=== PATIENT | female | born 1940 | race Caucasian/White ===

== ENCOUNTER → 2016-10-09 | Outpatient (RCR) ==
--- NOTE | 2016-09-20 12:04 | RS.OPPTEV2 ---
Date of Note: 09/20/16 Visit #: 1 Date of Evaluation: 09/20/16 Payer Source: MEDICARE Surgery Performed?: Yes Date of Procedure: 06/26/16 Treatment Diagnosis: Reverse shoulder replacement History of Condition/Mechanism of Injury:: Ms. Cox had left reversed TSR. She was doing pretty well until she lifted something on 09/12/2016. She states she had no immediate pain but then woke up the next morning and was in significant pain. She had a follow-up appt with the orthopedic surgeon and an X -ray showed the prosthesis was intact at that time and she was referred to PT. Prior Level of Function.....Patient was independent with: ADL's, Self Care, Caregiving, Ambulation/Mobility, Community Integration/Access Level of Function: Independent with ADL's. Functional Limitations: Sleep, Self Care, ADL's, Reaching, Pushing, Pulling, Lifting, Carrying Current Subjective/complaints:: I am afraid I really messed up my shoulder. Treatment Side (optional): Left Medical History Medical History: Hypertension, Arthritis, Cancer Surgical History: Knee Replacement, CABG Surgical History Comments:: CABG 2001 Smoking Status: Former smoker Hx Home Medications: Toprol, Aspirin, Losartan, Simvastin & Alieve Pain Assessment - Pain Description Pain Location: left shoulder Pain Description: Burning, Sharp Pain Description: With any active movement Current Pain Intensity: 0 at rest Worst Pain Intensity: 10/10 Functional Outcome Measure UE Functional Index: 34 (43% Disability) - G Codes & Severity Modifier G Codes & Modifier: Current: Carrying, Moving & Handling Objects - CK. Goal: CJ Source of G Code score: Upper Extremity Functional Index General Range of Motion: Left shoulder ROM is WFLs in all planes with min tightness noted on external rotation. Pain is also a limiting factor in assessment. Muscle Strength: Unable to test due to pain with AROM. Palpation Palpation Findings: Tenderness, Trigger Point, Muscle Guarding (Left shoulder muscles with varying degrees of discomfort to palpation.) Sensation - Sensation Left Upper Extremity: Intact/Normal Interventions - Exercise/Activities/Manual Therapy Exercises/Activities: Ther ex: AAROM of the left shoulder in all planes of motion within pain free range, shoulder shrugs, shoulder circles CW/CCW. Manual Therapy: Tender point releases performed to multiple areas of the left shoulder anterior, posterior and superiorly; left scapular mobility to improve thoracoscapular mobility, oscilation and joint distraction of the glenohumeral joint as well HOME EXERCISE PROGRAM: Patient was instructed to use MH and to perform shoulder shrugs and circles as she can tolerate in pain free ROM. She was instructed to rest the joint and stop when movements cause increased sharp pain. - Charges Total Direct Minutes: 70 Total Treatment Time: 45 Procedures billed for this date of service:: PT Eval (Low), Manual Therapy X 2, Ther Ex Assessment Assessment: Left shoulder pain with active movement and left shoulder weakness. Patient Education: Education of diagnosis, Body/Joint mechanics, Home Exercise Program, Activity Modification, Education of Plan of Care Rehab Potential: Good Short Term Goals Goal #1: Left shoulder initiation of movement without increased pain Goal to be met by: 10/12/16 Goal #2: Worst pain 5/10 left shoulder Goal to be met by: 10/12/16 Goal #3: Patient is independent and compliant with basic HEP Goal to be met by: 10/12/16 Goal #4: Left shoulder strength 4/5. Goal to be met by: 10/12/16 Machine Specialist Goals Goal #1: Patient independent in HEP. Goal to be met by: 11/02/16 Goal #2: Left shoulder AROM WFL's to perform selfcare and ADL's. Goal to be met by: 11/02/16 Goal #3: Score on UE Functional Index improved to 60. Goal to be met by: 11/02/16 Goal #4: Uses LUE for ADLs with minimal pain. Goal to be met by: 11/02/16 Plan - Treatment to be Provided Procedures: Therapeutic Exercises, Therapeutic Activity, Neuromuscular Rehab, Manual Therapy, Massage, Splinting/Taping, Patient Education Modalities: Electrical Stimulation, Ultrasound/Phonophoresis, Class IV Laser, Cryotherapy, Hot Packs - Treatment Plan Frequency: 1 X week Duration: 6 weeks ORDER # VISITS AND/OR THROUGH DATE: 11/02/2016 - Treatment Code (1) Left shoulder pain Qualifiers: Chronicity: acute Qualified Description: Acute pain of left shoulder Qualifier Code(s): (M25.512) Pain in left shoulder (2) Bilateral arm weakness Comments: M62.81 left shoulder
--- NOTE | 2016-09-26 14:07 | RS.OPPTDN ---
Subjective Date of Note: 09/26/16 Visit #: 2 Date of Evaluation: 09/20/16 Payer Source: MEDICARE Treatment Diagnosis: Reverse shoulder replacement Current Subjective/complaints:: Patient says she had barely any pain right after surgery and could raise her arm quite well. But, she says she lifted something she wasn't supposed to and had pain ever since as well as very limited ROM. States she does not return to the MD until November 21. She says she would like to come to therapy BIW. Pain Assessment - Pain Description Pain Location: left shoulder Pain Description: Burning, Sharp Pain Description: With any active movement Current Pain Intensity: 0 at rest - Treatment Modality: Electrical Stim Unattended Parameters/Method Applied: Hivolt 4 small pads @ 130 pk volts x 20 mins to the L shoulder ant/post and to UT Patient Position: Sitting - Heat/Cryotherapy Treatment: Cryotherapy Interventions - Exercise/Activities/Manual Therapy Exercises/Activities: Ther ex: PROM all directions in shoulder and elbow in supine. Continued with oscillation and long axis joint distraction for mobility and pain relief. Patient performs shoulder shrugs and scap adduction, cervical SB and rotation in sitting x 10. Total minutes of Exercise: 22 Manual Therapy: na HOME EXERCISE PROGRAM: Patient was instructed to use MH and to perform shoulder shrugs and circles as she can tolerate in pain free ROM. She was instructed to rest the joint and stop when movements cause increased sharp pain. - Charges Total Direct Minutes: 22 Total Treatment Time: 42 Procedures billed for this date of service:: cp, ex, estim (un) Assessment: Patient with moderate pain level and limitation with mobility of the L shoulder. New symptoms occuring a few weeks post op as she recalls very little pain and no difficulty moving in any plane until she lifted something at home. She does not have a follow up until November 21 and recommended her to contact her MD about a sooner appointment. She demo guarding and tenses slightly at initial ROM, but loosens well after time progresses and with oscillations. Patient Education: Education of diagnosis, Body/Joint mechanics, Home Exercise Program, Home Safety, Activity Modification, Education of Plan of Care Short Term Goals Goal #1: Left shoulder initiation of movement without increased pain Goal to be met by: 10/12/16 Goal #2: Worst pain 5/10 left shoulder Goal to be met by: 10/12/16 Goal #3: Patient is independent and compliant with basic HEP Goal to be met by: 10/12/16 Goal #4: Left shoulder strength 4/5. Goal to be met by: 10/12/16 [facility] Living Goals Goal #1: Patient independent in HEP. Goal to be met by: 11/02/16 Progress towards goal: Progressing Goal #2: Left shoulder AROM WFL's to perform selfcare and ADL's. Goal to be met by: 11/02/16 Goal #3: Score on UE Functional Index improved to 60. Goal to be met by: 11/02/16 Goal #4: Uses LUE for ADLs with minimal pain. Goal to be met by: 11/02/16 Plan PLAN OF CARE EXPIRES ON:: 11/02/16 ORDER # VISITS AND/OR THROUGH DATE: 11/02/2016 PLAN: Progress Exercises
--- NOTE | 2016-10-04 14:29 | RS.OPPTDN ---
Subjective Date of Note: 10/04/16 Visit #: 4 Date of Evaluation: 09/20/16 Payer Source: MEDICARE Treatment Diagnosis: Reverse shoulder replacement Current Subjective/complaints:: Patient says she may be impatient with her progress. She feels she should be further along than what she is. She will be seeing her MD tomorrow. She adds, she will be flying to [place] the beginning of November and would like to come [facility] next week to improve quicker. Pain Assessment - Pain Description Pain Location: left shoulder Pain Description: Burning, Sharp Pain Description: With any active movement Current Pain Intensity: 0 at rest - Heat/Cryotherapy Treatment: Hot Pack (15 mins to the L shoulder in sitting) Interventions - Exercise/Activities/Manual Therapy Exercises/Activities: Ther ex: PROM all directions in shoulder and elbow in supine. Continued with oscillation and long axis joint distraction for mobility and pain relief. She allows for shoulder flexion to 130 degrees freely. ABD in scaption plane near WFL as well. AROM for elbow, 5# mechanic assistant digiflexor, AAROM for press ups and bilateral shoulder flexion 1# therapy stick x 5. Sitting AAROM for flexion and scaption, Patient performs shoulder shrugs and scap adduction, cervical SB and rotation in sitting x 10. Total minutes of Exercise: 35 Manual Therapy: na HOME EXERCISE PROGRAM: Patient was instructed to use MH and to perform shoulder shrugs and circles as she can tolerate in pain free ROM. She was instructed to rest the joint and stop when movements cause increased sharp pain. - Charges Total Direct Minutes: 35 Total Treatment Time: 50 Procedures billed for this date of service:: hp, ex2 Assessment: Patient demos improvement with PROM all planes. She has limited passive ER due to pain, but all else without muscle guarding. Active flexion remains difficult and painful. She uses ice/heat at home for pain control. She is not taking any pain meds prior to PT, only at bedtime. She appears to be progressing well according to protocol. Patient Education: Education of diagnosis, Body/Joint mechanics, Home Exercise Program, Home Safety, Activity Modification, Education of Plan of Care Patient demonstrates compliance with HEP?: Yes Short Term Goals Goal #1: Left shoulder initiation of movement without increased pain Goal to be met by: 10/12/16 Progress towards Goal:: Progressing Comments:: passively very little soreness Goal #2: Worst pain 5/10 left shoulder Goal to be met by: 10/12/16 Comments:: Actively causes pain Goal #3: Patient is independent and compliant with basic HEP Goal to be met by: 10/12/16 Progress towards Goal:: Progressing Goal #4: Left shoulder strength 4/5. Goal to be met by: 10/12/16 Patrol Captain Goals Goal #1: Patient independent in HEP. Goal to be met by: 11/02/16 Progress towards goal: Progressing Goal #2: Left shoulder AROM WFL's to perform selfcare and ADL's. Goal to be met by: 11/02/16 Goal #3: Score on UE Functional Index improved to 60. Goal to be met by: 11/02/16 Goal #4: Uses LUE for ADLs with minimal pain. Goal to be met by: 11/02/16 Plan PLAN OF CARE EXPIRES ON:: 11/02/16 ORDER # VISITS AND/OR THROUGH DATE: 11/02/2016 PLAN: Progress Exercises (Patient has follow up with Oct 05.)
--- NOTE | 2016-10-04 16:14 | RS.OPPTDN ---
Subjective Date of Note: 10/02/16 Visit #: 3 Date of Evaluation: 09/20/16 Payer Source: MEDICARE Treatment Diagnosis: Reverse shoulder replacement Current Subjective/complaints:: Patient says she is still having pain to the L shoulder, but has been using heat at home, which is helping. She says that she continues to perform HEP. States she is able to wear "regular clothes" and does not have to wear button down shirts. Reports she is able to see more mobility and does not have the "sting" she did last week into the L shoulder and upper arm. Pain Assessment - Pain Description Pain Location: left shoulder Pain Description: Burning, Sharp Pain Description: With any active movement Current Pain Intensity: 0 at rest - Heat/Cryotherapy Treatment: Hot Pack (15 mins to the L shoulder in sitting) Interventions - Exercise/Activities/Manual Therapy Exercises/Activities: Ther ex: PROM all directions in shoulder and elbow in supine. Continued with oscillation and long axis joint distraction for mobility and pain relief. AROM for elbow, 5# outdoor studies director digiflexor, AAROM for press ups and bilateral shoulder flexion 1# therapy stick x 5. Sitting AAROM for flexion and scaption, Patient performs shoulder shrugs and scap adduction, cervical SB and rotation in sitting x 10. Total minutes of Exercise: 30 Manual Therapy: na HOME EXERCISE PROGRAM: Patient was instructed to use MH and to perform shoulder shrugs and circles as she can tolerate in pain free ROM. She was instructed to rest the joint and stop when movements cause increased sharp pain. - Charges Total Direct Minutes: 30 Total Treatment Time: 45 Procedures billed for this date of service:: hp, ex2 Assessment: Patient with no pain except with active flexion. She demo's good motion passively with the exception of ER. She is hopeful that she will be able to lift her arm more by herself. Patient Education: Education of diagnosis, Body/Joint mechanics, Home Exercise Program, Home Safety, Activity Modification, Education of Plan of Care Patient demonstrates compliance with HEP?: Yes Short Term Goals Goal #1: Left shoulder initiation of movement without increased pain Goal to be met by: 10/12/16 Goal #2: Worst pain 5/10 left shoulder Goal to be met by: 10/12/16 Goal #3: Patient is independent and compliant with basic HEP Goal to be met by: 10/12/16 Goal #4: Left shoulder strength 4/5. Goal to be met by: 10/12/16 Intermediate Goals Goal #1: Patient independent in HEP. Goal to be met by: 11/02/16 Progress towards goal: Progressing Goal #2: Left shoulder AROM WFL's to perform selfcare and ADL's. Goal to be met by: 11/02/16 Goal #3: Score on UE Functional Index improved to 60. Goal to be met by: 11/02/16 Goal #4: Uses LUE for ADLs with minimal pain. Goal to be met by: 11/02/16 Plan PLAN OF CARE EXPIRES ON:: 11/02/16 ORDER # VISITS AND/OR THROUGH DATE: 11/02/2016 PLAN: Progress Exercises
--- NOTE | 2016-10-09 11:54 | RS.OPPTDN ---
Subjective Date of Note: 10/09/16 Visit #: 5 Date of Evaluation: 09/20/16 Payer Source: MEDICARE Treatment Diagnosis: Reverse shoulder replacement Current Subjective/complaints:: Patient says she had a good report with her MD. Says the xray shows healing well. Reports pain is only in certain movements, but says she is able to move the arm better. Pain Assessment - Pain Description Pain Location: left shoulder Pain Description: Burning, Sharp Pain Description: With any active movement Current Pain Intensity: 0 at rest - Heat/Cryotherapy Treatment: Hot Pack (15 mins to the L shoulder in sitting) Interventions - Exercise/Activities/Manual Therapy Exercises/Activities: Ther ex: PROM all directions in shoulder and elbow in supine. Continued with oscillation and long axis joint distraction for mobility and pain relief. Began gentle manual isometrics for the shoulder in supine x 5. AROM for elbow, 5# tractor driver digiflexor, AAROM for press ups and bilateral shoulder flexion 1# therapy stick 2 x 5. Sitting AAROM for flexion and scaption, Red tband with therapy stick for scap retraction. Patient performs shoulder shrugs and scap adduction, cervical SB and rotation in sitting x 10. Total minutes of Exercise: 35 Manual Therapy: na HOME EXERCISE PROGRAM: Patient was instructed to use MH and to perform shoulder shrugs and circles as she can tolerate in pain free ROM. She was instructed to rest the joint and stop when movements cause increased sharp pain. - Charges Total Direct Minutes: 35 Total Treatment Time: 50 Procedures billed for this date of service:: hp, ex2 Assessment: Patient had a good experience with her MD at follow up. Xray shows TSA healing well. She demos good PROM to near WNL for flexion, ABD WFL. Rotation even improving. Patient Education: Education of diagnosis, Body/Joint mechanics, Home Exercise Program, Home Safety, Activity Modification, Education of Plan of Care Patient demonstrates compliance with HEP?: Yes Short Term Goals Goal #1: Left shoulder initiation of movement without increased pain Goal to be met by: 10/12/16 Goal #2: Worst pain 5/10 left shoulder Goal to be met by: 10/12/16 Goal #3: Patient is independent and compliant with basic HEP Goal to be met by: 10/12/16 Goal #4: Left shoulder strength 4/5. Goal to be met by: 10/12/16 [facility] Goals Goal #1: Patient independent in HEP. Goal to be met by: 11/02/16 Progress towards goal: Progressing Goal #2: Left shoulder AROM WFL's to perform selfcare and ADL's. Goal to be met by: 11/02/16 Goal #3: Score on UE Functional Index improved to 60. Goal to be met by: 11/02/16 Goal #4: Uses LUE for ADLs with minimal pain. Goal to be met by: 11/02/16 Plan PLAN OF CARE EXPIRES ON:: 11/02/16 ORDER # VISITS AND/OR THROUGH DATE: 11/02/2016 PLAN: Progress Exercises
== END ==
PROVIDERS: ATTEND Orthopaedic Surgery
DX: Z96.612 Presence of left artificial shoulder joint (principal)

== ENCOUNTER 2016-11-01 11:00 | Outpatient (RCR) ==
--- NOTE | 2016-10-11 12:17 | RS.OPPTDN ---
Subjective Date of Note: 10/11/16 Visit #: 6 Date of Evaluation: 09/20/16 Payer Source: MEDICARE Treatment Diagnosis: Reverse shoulder replacement Current Subjective/complaints:: Patient says she is doing well and will have a follow up with MD in 1 1/2 weeks. She feels she has good motion and has been seeing less pain. She expects to only come 1-2 more weeks before leaving for [place]. Pain Assessment - Pain Description Pain Location: left shoulder Pain Description: With any active movement Current Pain Intensity: 0 at rest - Heat/Cryotherapy Treatment: Hot Pack (to the L shoulder and neck in sitting x 15 mins) Interventions - Exercise/Activities/Manual Therapy Exercises/Activities: Ther ex: PROM all directions in shoulder and elbow in supine. Continued with oscillation and long axis joint distraction for mobility and pain relief. Began gentle manual isometrics for the shoulder in supine x 5. AROM for elbow, 5# online marketing director digiflexor, AAROM for press ups and bilateral shoulder flexion 1# therapy stick 2 x 5. Sitting AAROM for flexion and scaption, Red tband with therapy stick for scap retraction. Patient performs shoulder shrugs and scap adduction, cervical SB and rotation in sitting x 10. Active shoulder flexion in sitting. Total minutes of Exercise: 33 Manual Therapy: na HOME EXERCISE PROGRAM: Patient was instructed to use MH and to perform shoulder shrugs and circles as she can tolerate in pain free ROM. She was instructed to rest the joint and stop when movements cause increased sharp pain. - Objective Findings Observations,measurements,etc.: AAROM: Flexion 145 degrees (supine), Active is actually more at 150 degrees due to no hinderance from the R UE. AAROM: ABD to 110 degrees (supine) - Charges Total Direct Minutes: 33 Total Treatment Time: 48 Procedures billed for this date of service:: hp, ex2 Assessment: Patient demonstrates increased passive and active ranges today. Less pain noted with all therex and patient expressess she does not feel she needs much more PT after next week. Patient Education: Education of diagnosis, Body/Joint mechanics, Home Exercise Program, Home Safety, Activity Modification, Education of Plan of Care Patient demonstrates compliance with HEP?: Yes Short Term Goals Goal #1: Left shoulder initiation of movement without increased pain Goal to be met by: 10/12/16 Progress towards Goal:: Progressing Goal #2: Worst pain 5/10 left shoulder Goal to be met by: 10/12/16 Progress towards Goal:: Progressing Goal #3: Patient is independent and compliant with basic HEP Goal to be met by: 10/12/16 Progress towards Goal:: Progressing Goal #4: Left shoulder strength 4/5. Goal to be met by: 10/12/16 [facility] Goals Goal #1: Patient independent in HEP. Goal to be met by: 11/02/16 Progress towards goal: Progressing Goal #2: Left shoulder AROM WFL's to perform selfcare and ADL's. Goal to be met by: 11/02/16 Goal #3: Score on UE Functional Index improved to 60. Goal to be met by: 11/02/16 Goal #4: Uses LUE for ADLs with minimal pain. Goal to be met by: 11/02/16 Plan PLAN OF CARE EXPIRES ON:: 11/02/16 ORDER # VISITS AND/OR THROUGH DATE: 11/02/2016 PLAN: Progress Exercises
--- NOTE | 2016-10-16 13:15 | RS.OPPTDN ---
Subjective Date of Note: 10/16/16 Visit #: 7 Date of Evaluation: 09/20/16 Payer Source: MEDICARE Treatment Diagnosis: Reverse shoulder replacement Current Subjective/complaints:: Patient c/o stiffness over the weekend. Says she may have slept wrong. Pain Assessment - Pain Description Pain Location: left shoulder Pain Description: With any active movement Current Pain Intensity: 0 at rest, C/c stiffness today - Heat/Cryotherapy Treatment: Hot Pack (15 mins to the L shoulder and neck in sitting) Interventions - Exercise/Activities/Manual Therapy Exercises/Activities: Ther ex: PROM all directions in shoulder in supine. Continued with oscillation and long axis joint distraction for mobility and pain relief. Continued with manual isometrics for the shoulder in supine x 5. Active shoulder reaching 2/5. Elbow and wrist 1# dumbell, 5# service delivery analyst digiflexor, AAROM for press ups and bilateral shoulder flexion 1# therapy stick 2 x 5. Sitting Active shoulder flexion 2x5. Red tband with therapy stick for scap retraction. Patient performs shoulder shrugs, cervical SB and rotation in sitting x 10. Total minutes of Exercise: 34 Manual Therapy: na HOME EXERCISE PROGRAM: Patient was instructed to use MH and to perform shoulder shrugs and circles as she can tolerate in pain free ROM. She was instructed to rest the joint and stop when movements cause increased sharp pain. - Charges Total Direct Minutes: 34 Total Treatment Time: 49 Procedures billed for this date of service:: hp, ex2 Assessment: Patient performs all therex now WFL actively for abd and flexion. Rotation still limited by about 40%, but improving. Movements are more controlled with eccentric contractions. Limited resistance, however, with isometrics regarding IR/ER. Patient Education: Education of diagnosis, Body/Joint mechanics, Home Exercise Program, Home Safety, Activity Modification, Education of Plan of Care Patient demonstrates compliance with HEP?: Yes Short Term Goals Goal #1: Left shoulder initiation of movement without increased pain Goal to be met by: 10/12/16 Progress towards Goal:: Progressing Goal #2: Worst pain 5/10 left shoulder Goal to be met by: 10/12/16 Progress towards Goal:: Progressing Goal #3: Patient is independent and compliant with basic HEP Goal to be met by: 10/12/16 Progress towards Goal:: Progressing Goal #4: Left shoulder strength 4/5. Goal to be met by: 10/12/16 [facility] Goals Goal #1: Patient independent in HEP. Goal to be met by: 11/02/16 Progress towards goal: Progressing Goal #2: Left shoulder AROM WFL's to perform selfcare and ADL's. Goal to be met by: 11/02/16 Goal #3: Score on UE Functional Index improved to 60. Goal to be met by: 11/02/16 Goal #4: Uses LUE for ADLs with minimal pain. Goal to be met by: 11/02/16 Plan PLAN OF CARE EXPIRES ON:: 11/02/16 ORDER # VISITS AND/OR THROUGH DATE: 11/02/2016 PLAN: Progress Exercises
--- NOTE | 2016-10-30 16:32 | RS.OPPTDN ---
Subjective Date of Note: 10/30/16 Visit #: 9 Date of Evaluation: 09/20/16 Payer Source: MEDICARE Treatment Diagnosis: Reverse shoulder replacement Current Subjective/complaints:: Patient says she is doing very well. She says that her pain is very minimal and intermittent. She will be leaving to [place] next week and says she feels she is doing well enough in PT to go and do nearly anything. Pain Assessment - Pain Description Pain Location: left shoulder Pain Description: With any active movement Current Pain Intensity: 0 at rest, C/c stiffness today - Heat/Cryotherapy Treatment: Hot Pack (20 mins to the L shoulder sitting) Interventions - Exercise/Activities/Manual Therapy Exercises/Activities: Ther ex: PROM all directions in shoulder in supine. Continued with oscillation and long axis joint distraction for mobility and pain relief. Continued with manual isometrics for the shoulder in supine x 5. Active shoulder reaching 2/5. Elbow and wrist 1# dumbell, 5# exchange architect digiflexor, AAROM for press ups and bilateral shoulder flexion 1 1/2# therapy stick 2 x 5. Sitting Active shoulder flexion 2x5. Red tband with therapy stick for scap retraction. Patient performs shoulder shrugs, cervical SB and rotation in sitting x 10. Finished with Active shoulder flexion and abd 2/5 reps. Total minutes of Exercise: 30 Manual Therapy: na HOME EXERCISE PROGRAM: Patient was instructed to use MH and to perform shoulder shrugs and circles as she can tolerate in pain free ROM. She was instructed to rest the joint and stop when movements cause increased sharp pain. - Charges Total Direct Minutes: 30 Total Treatment Time: 45 Procedures billed for this date of service:: hp, ex2 Assessment: Patient demonstrates near full passive flexion and abd in scaption. Patient actively able to perform flex/abd in WFL and within RSR expectations. Patient shows good resistance with all isometrics and remains pleased with low pain level. Patient Education: Education of diagnosis, Body/Joint mechanics, Home Exercise Program, Home Safety, Activity Modification, Education of Plan of Care Patient demonstrates compliance with HEP?: Yes Short Term Goals Goal #1: Left shoulder initiation of movement without increased pain Goal to be met by: 10/12/16 Progress towards Goal:: Met Goal #2: Worst pain 5/10 left shoulder Goal to be met by: 10/12/16 Progress towards Goal:: Met Goal #3: Patient is independent and compliant with basic HEP Goal to be met by: 10/12/16 Progress towards Goal:: Met Goal #4: Left shoulder strength 4/5. Goal to be met by: 10/12/16 Progress towards Goal:: Met Longterm Goals Goal #1: Patient independent in HEP. Goal to be met by: 11/02/16 Progress towards goal: Progressing Goal #2: Left shoulder AROM WFL's to perform selfcare and ADL's. Goal to be met by: 11/02/16 Progress towards goal: Partially Met Goal #3: Score on UE Functional Index improved to 60. Goal to be met by: 11/02/16 Comments: Assess Goal #4: Uses LUE for ADLs with minimal pain. Goal to be met by: 11/02/16 Progress towards goal: Progressing Plan PLAN OF CARE EXPIRES ON:: 11/02/16 ORDER # VISITS AND/OR THROUGH DATE: 11/02/2016 PLAN: Plan for Discharge
--- NOTE | 2016-11-01 13:32 | RS.OPPTDN ---
Subjective Date of Note: 11/01/16 Visit #: 10 Date of Evaluation: 09/20/16 Payer Source: MEDICARE Treatment Diagnosis: Reverse shoulder replacement Current Subjective/complaints:: Patient states the weather is helping her pain. She says she is very happy how well her shoulder is doing. She says she is able to do most everything at home now and preparing to fly to [place] next week. Pain Assessment - Pain Description Pain Location: left shoulder Pain Description: With any active movement Current Pain Intensity: 0 at rest - Heat/Cryotherapy Treatment: Hot Pack (15 mins to the L shoulder in sitting) Interventions - Exercise/Activities/Manual Therapy Exercises/Activities: Ther ex: PROM all directions in shoulder in supine. Continued with oscillation and long axis joint distraction for mobility and pain relief. Continued with manual isometrics for the shoulder in supine x 5. Active shoulder reaching 2/5. Progressed Elbow and wrist 2# dumbell, 7 and 9# ordnance engineer digiflexor, AAROM for press ups and bilateral shoulder flexion 1 1/2# therapy stick 2 x 5. Sitting Active shoulder flexion 2x5. Red tband with therapy stick for scap retraction. Patient performs shoulder shrugs, cervical SB and rotation in sitting x 10. Reassessment completed. Total minutes of Exercise: 30 Manual Therapy: na HOME EXERCISE PROGRAM: Patient was instructed to use MH and to perform shoulder shrugs and circles as she can tolerate in pain free ROM. She was instructed to rest the joint and stop when movements cause increased sharp pain. - Objective Findings Observations,measurements,etc.: UE Functional Index: 69/80 or 14% impairment ( eval: 34/80 or 43% impairment) - Charges Total Direct Minutes: 30 Total Treatment Time: 45 Procedures billed for this date of service:: hp, ex2 Assessment: Patient has advanced well with mobility and strength, demo improved UE Index. Passive flexion/abd 165 degrees, Actively WFL. Patient Education: Education of diagnosis, Body/Joint mechanics, Home Exercise Program, Home Safety, Activity Modification, Education of Plan of Care Patient demonstrates compliance with HEP?: Yes Short Term Goals Goal #1: Left shoulder initiation of movement without increased pain Goal to be met by: 10/12/16 Progress towards Goal:: Met Goal #2: Worst pain 5/10 left shoulder Goal to be met by: 10/12/16 Progress towards Goal:: Met Goal #3: Patient is independent and compliant with basic HEP Goal to be met by: 10/12/16 Progress towards Goal:: Met Goal #4: Left shoulder strength 4/5. Goal to be met by: 10/12/16 Progress towards Goal:: Met Residential Goals Goal #1: Patient independent in HEP. Goal to be met by: 11/02/16 Progress towards goal: Met Goal #2: Left shoulder AROM WFL's to perform selfcare and ADL's. Goal to be met by: 11/02/16 Progress towards goal: Met Goal #3: Score on UE Functional Index improved to 60. Goal to be met by: 11/02/16 Progress towards goal: Met Goal #4: Uses LUE for ADLs with minimal pain. Goal to be met by: 11/02/16 Progress towards goal: Met Plan PLAN OF CARE EXPIRES ON:: 11/02/16 ORDER # VISITS AND/OR THROUGH DATE: 11/02/2016 PLAN: Plan for Discharge
--- NOTE | 2016-11-08 16:17 | RS.OPPTDC ---
Date of Discharge: 11/29/16 Date of Evaluation: 09/20/16 Number of Visits: 10 Treatment Diagnosis: Reverse shoulder replacement Current Complaints/Gains: Patient is pleased with her progress,is tolerating ADL 's better.She is also compliant to HEP. Pain Assessment - Pain Description Pain Location: left shoulder Pain Description: With any active movement Current Pain Intensity: 0 at rest Functional Outcome Measure Neck Disability Index: 69 (14%) - G Codes & Severity Modifier G Codes & Modifier: Carrying Moving & Handling Objects. DC - CI. Goal - CJ Source of G Code score: UE Functional Scale Interventions - Exercise/Activities/Manual Therapy Exercises/Activities: NA Manual Therapy: na HOME EXERCISE PROGRAM: NA - Charges Total Direct Minutes: NA Total Treatment Time: NA Procedures billed for this date of service:: NA Assessment Assessment: Excellent progress with PT intervention. All STGs and LTGs were met. She is independent with HEP at DC to continue with her DC status. Short Term Goals Goal #1: Left shoulder initiation of movement without increased pain Goal to be met by: 10/12/16 Progress towards Goal:: Met Goal #2: Worst pain 5/10 left shoulder Goal to be met by: 10/12/16 Progress towards Goal:: Met Goal #3: Patient is independent and compliant with basic HEP Goal to be met by: 10/12/16 Progress towards Goal:: Met Goal #4: Left shoulder strength 4/5. Goal to be met by: 10/12/16 Progress towards Goal:: Met Shelter Goals Goal #1: Patient independent in HEP. Goal to be met by: 11/02/16 Progress towards goal: Met Goal #2: Left shoulder AROM WFL's to perform selfcare and ADL's. Goal to be met by: 11/02/16 Progress towards goal: Met Goal #3: Score on UE Functional Index improved to 60. Goal to be met by: 11/02/16 Progress towards goal: Met Goal #4: Uses LUE for ADLs with minimal pain. Goal to be met by: 11/02/16 Progress towards goal: Met Plan Reason for Discharge:: All Goals Met
== END 2016-11-06 ==
PROVIDERS: ATTEND Orthopaedic Surgery
DX: Z96.612 Presence of left artificial shoulder joint (principal)

== ENCOUNTER 2017-01-11 09:54 | Outpatient (CLI) ==
--- NOTE | 2017-01-11 10:57 | CT ---
EXAM: CT of the lumbar spine without contrast History: Bilateral sciatica and leg pain. Comparison: None available. Technique: Multiplanar CT images through the lumbar spine were obtained without the administration of IV contrast Findings: Atherosclerotic vascular calcifications. Osteopenia. No acute fracture. Grade 1 anteroli sthesis of L4 on L5. Severe disc space narrowing at L2-L3 with endplate sclerosis, osteophyte forma tion and cystic endplate changes. Moderate to severe degenerative disc disease at L4-L5 and L3-L4 a s well as L1-L2. T12-L1: No significant bony central canal stenosis or bony neural foraminal narrowing. L1-L2: Modest disc protrusion with moderate central canal stenosis. Moderate to severe left and mi ld to moderate right bony neural foraminal narrowing secondary to ligamentous and facet hypertrophy. L2-L3: Posterior disc osteophyte complex with moderate to severe bony central canal stenosis. Mode rate to severe right and moderate left bony neural foraminal narrowing secondary to ligamentous and facet hypertrophy. L3-L4: Moderate to severe central canal stenosis. Severe right and moderate to severe left bony ne ural foraminal narrowing secondary to ligamentous and facet hypertrophy. L4-L5: Severe central canal stenosis. Severe bilateral bony neural foraminal narrowing secondary t o ligamentous and facet hypertrophy. L5-S1: Small disc protrusion with mild to moderate central canal stenosis. Mild to moderate bilate ral bony neural foraminal narrowing secondary to ligamentous and facet hypertrophy. Impression: 1. No acute fracture of the lumbar spine. 2. Severe degenerative disc disease at L2-3. Moderate to severe degenerative disc disease seen els ewhere. 3. Level by level analysis as detailed above with multilevel central canal stenosis and neural fora jorge luis narrowing, most significant at L4-L5.
== END 2017-01-11 09:55 | disposition home or self-care (01) ==
LOC: RAD 09:54
PROVIDERS: ATTEND Internal Medicine
DX: M54.42 Lumbago with sciatica, left side (principal); M54.41 Lumbago with sciatica, right side

== ENCOUNTER 2017-02-13 09:03 | Outpatient (CLI) | payer OTHER ==
--- NOTE | 2017-02-13 10:25 | MAMMO ---
EXAM: Bilateral digital diagnostic mammogram. History: Follow-up right breast calcifications. Comparison: Right diagnostic mammogram 08/20/2016, bilateral mammogram 01/27/2016 Findings: MLO and CC views of bilateral breasts demonstrate predominately fatty replaced breast par enchyma. Biopsy clip again seen within the right breast. Stable benign right breast calcifications . Stable benign bilateral vascular calcifications. There are no developing masses and no suspiciou s microcalcifications. Impression: Benign mammogram. Return to routine screening mammography schedule. BIRADS 2
== END 2017-02-13 09:04 | disposition home or self-care (01) ==
LOC: RAD 09:03
PROVIDERS: ATTEND Specialist
DX: R92.0 Mammographic microcalcification found on diagnostic imaging of breast (principal)

== ENCOUNTER 2017-04-05 10:27 | Outpatient (CLI) ==
[2017-04-05 10:54] LABS: BASOPHILS # (AUTO) 0.1 K/uL (0-0.2); BASOPHILS % (AUTO) 0.9 % (0.0-3.0); EOSINOPHILS # (AUTO) 0.1 K/ul (0.0-0.7); EOSINOPHILS % (AUTO) 0.8 % (0.0-7.0); HEMATOCRIT 37.6 % (37.0-47.0); HEMOGLOBIN 13.1 g/dl (12.0-16.0); IMMATURE GRANULOCYTE % (AUTO) 0.3 % (0.0-5.0); LYMPHOCYTES # (AUTO) 1.7 K/uL (0.60-3.4); LYMPHOCYTES % (AUTO) 25.9 (10.0-50.0); MEAN CORPUSCULAR HEMOGLOBIN 32.2 pg (27.0-31.0); MEAN CORPUSCULAR HGB CONC 34.8 (31.8-35.4); MEAN CORPUSCULAR VOLUME 92.4 fl (81.0-99.0); MONOCYTES # (AUTO) 0.4 K/uL (0.4-2.0); MONOCYTES % (AUTO) 6.6 (0-10); NEUTROPHILS # (AUTO) 4.3 K/ul (2.0-6.9); NEUTROPHILS % (AUTO) 65.5; PLATELET COUNT 298 10^3/uL (140-440); RED BLOOD COUNT 4.07 10^6/ul (4.20-5.40); WHITE BLOOD COUNT 6.63 K/ul (4.6-10.2)
[2017-04-05 11:14] LABS: ALBUMIN 4.2 g/dL (3.4-5.0); ALBUMIN/GLOBULIN RATIO 1.02; ANION GAP 16.4; BILIRUBIN,TOTAL 0.52 mg/dL (0.00-1.20); BUN/CREATININE RATIO 13.79; CALCIUM 10.5 mg/dL (8.2-10.2); CREATININE 1.16 mg/dL (0.60-1.30); POTASSIUM 3.4 mmol/L (3.5-5.10); TOTAL PROTEIN 8.3 g/dL (5.8-8.1)
--- NOTE | 2017-04-05 11:28 | CT ---
EXAM: CT of the abdomen pelvis with contrast History: Left lower quadrant abdominal pain. Technique: Multiplanar CT images through the abdomen pelvis were obtained following administration of IV contrast Findings: Lung bases are clear. No acute osseous abnormalities. Atherosclerotic vascular calcifications. Pancreas is within normal limits. Adrenal glands are unre markable. There are several low-density liver lesions, some which are too small to characterize acc urately by CT. The largest is consistent with a simple cyst and measures 3.4 cm. 0.8 cm enhancing l esion within the right hepatic lobe. No discrete gallstones identified by CT. Spleen is unremarkabl e. No enhancing renal masses. No hydronephrosis. The appendix is not seen but there are no signs o f appendicitis. No bowel obstruction. No bladder wall thickening. Uterus is atrophic. No perirec kera inflammation. Moderate colonic stool. Small amount of inflammation seen adjacent to the sigmoid colon within the pelvis with 1.8 cm associated fat density. No abscess. No free air and no ascite s. No pathologically enlarged lymph nodes. Severe degenerative disc disease at L2-L3. Moderate to severe degenerative disc disease at L4-L5. Grade 1 anterolisthesis of L4 on L5. Prominent disc bulge at L1, L2. Impression: 1. Inflammation adjacent to the sigmoid colon within the pelvis. Differential diagnosis includes d iverticulitis or epiploic appendagitis. There is no bowel obstruction. No abscess. 2. Hepatic cysts and probable small hepatic hemangioma. 3. Degenerative changes of the lumbar spine.
== END 2017-04-05 10:28 | disposition home or self-care (01) ==
LOC: RAD 10:27
PROVIDERS: ATTEND Internal Medicine
DX: R10.32 Left lower quadrant pain (principal)
CPT/HCPCS: 36415; 80053; 85025

== ENCOUNTER 2017-07-16 10:13 | Day surgery (SDC) ==
[2017-07-16] MEDS ORDERED: VERSED ONE (12:25)
[2017-07-16] MEDS ORDERED: DIPRIVAN 20 ML VIAL IVP ONE (12:25)
[2017-07-16 13:47] VITALS: BP 126/70; TEMP 96.6
--- NOTE | 2017-07-17 10:37 | OP ---
INDICATIONS FOR PROCEDURE: 76-year-old female presents for screening colon exam. She has a family history of colon polyps involving her sister. MEDICATIONS: SEE ANESTHESIA NOTES. PROCEDURE: COLONOSCOPY, SNARE POLYPECTOMY. REPORT: The risks, benefits, alternatives and limitations were discussed in detail with the patient. Informed consent was obtained. After adequate sedation was achieved, a digital rectal exam revealed good tone, no masses. The colonoscope was introduced into the rectum and advanced under direct visual guidance to the cecum. The cecum was identified by the appendiceal orifice and IC valve. I then slowly withdrew the scope in a circumferential manner examining the mucosa quite carefully. I looked on the proximal and distal side of folds and flexures as best as possible. In the proximal transverse colon there was a small 5 mm sessile polyp that I removed by snare technique. The tissue was destroyed. The remaining colon was unremarkable other than diverticulosis in the sigmoid. The scope was retroflexed to look at the anal canal which was unremarkable. The prep was good. The withdrawal time was 9 minutes and 21 seconds. The patient tolerated the procedure well with stable vital signs and pulse oximetry throughout. IMPRESSION: 1. SMALL POLYP REMOVED AND DESTROYED 2. DIVERTICULOSIS IN THE SIGMOID AREA RECOMMENDATIONS: 1. High fiber diet 2. Office visit as needed 3. Consider colonoscopy examination again in 5 years if she is clincally well ; sooner if there are any signs or symptoms to indicate otherwise. CC: DR. GIOVANI RYDER
== END 2017-07-16 13:47 | disposition home or self-care (01) ==
LOC: SURG 10:13
PROVIDERS: ATTEND Internal Medicine Gastroenterology
DX: Z12.11 Encounter for screening for malignant neoplasm of colon (principal); K63.5 Polyp of colon; K57.30 Diverticulosis of large intestine without perforation or abscess without bleeding; Z83.71 Family history of colonic polyps

== ENCOUNTER 2018-02-18 09:40 | Outpatient (CLI) | payer OTHER ==
--- NOTE | 2018-02-19 08:36 | MAMMO ---
EXAM: Bilateral digital screening mammogram (2-D and 3-D) History: Screening Comparison: Bilateral mammogram 02/13/2017 Findings: MLO and CC views of bilateral breasts demonstrate predominately fatty replaced breast pare nchyma. CAD was reviewed by the radiologist. Tomosynthesis was performed. Stable benign bilateral vascular and scattered calcifications. Biopsy clip again seen within the right breast. There are no developing masses and no suspicious microcalcifications. Impression: Benign stable mammogram. Recommend followup 1-year routine screening mammogram BIRADS 2
== END 2018-02-18 09:41 | disposition home or self-care (01) ==
LOC: RAD 09:40
PROVIDERS: ATTEND Specialist
DX: Z12.31 Encounter for screening mammogram for malignant neoplasm of breast (principal)
CPT/HCPCS: 77067